=== PATIENT | male | born 1950 | race Caucasian/White ===

== ENCOUNTER 2017-11-30 19:23 | Emergency (ER) | payer OTHER ==
[2017-11-30] MEDS ORDERED: predniSONE 20 MG TAB PO ONE (19:33)
[2017-11-30] MEDS ORDERED: FAMOTIDINE 20 MG TAB PO ONE (19:33)
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
[2017-11-30 20:39] VITALS: BP 134/104
== END 2017-11-30 20:39 | disposition home or self-care (01) ==
DX: T63.483A Toxic effect of venom of other arthropod, assault, initial encounter (principal)
CPT/HCPCS: J7512

== ENCOUNTER 2018-06-15 12:05 | Emergency (ER) | payer OTHER ==
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
[2018-06-15] MEDS ORDERED: OXYCODONE/APAP 5/325 TAB PO ONE (13:59)
[2018-06-15] MEDS ORDERED: IBUPROFEN 800 MG TAB PO ONE (13:59)
[2018-06-15 15:45] VITALS: BP 166/100
== END 2018-06-15 15:44 | disposition home or self-care (01) ==
DX: S93.401A Sprain of unspecified ligament of right ankle, initial encounter (principal); S86.811A Strain of other muscle(s) and tendon(s) at lower leg level, right leg, initial encounter; S00.11XA Contusion of right eyelid and periocular area, initial encounter; W17.89XA Other fall from one level to another, initial encounter
CPT/HCPCS: L4386